=== PATIENT | male | born 1945 | race Caucasian/White ===

== ENCOUNTER 2017-10-03 20:32 | Inpatient (IN) | payer OTHER ==
[~2017-10-03] VITALS: Ht 182.9 cm; Wt 84.1 kg
[2017-10-03 20:46] LABS: BASOPHIL (%) 0.7 % (0-1); BASOPHIL COUNT 0.1 K/uL (0-0.1); EOSINOPHIL (%) 1.5 % (0-5); EOSINOPHIL COUNT 0.2 K/uL (0-0.3); HEMATOCRIT 50.7 % (38.0-50.0); HEMOGLOBIN 17.2 G/DL (12.5-16.6); IMMATURE GRANULOCYTE (%) 0.4 % (0.0-0.7); LYMPHOCYTE (%) 21.3 % (15-42); LYMPHOCYTE COUNT 2.3 K/uL (1.0-2.8); MCH 30.6 PG (29.0-34.0); MCHC 33.9 G/DL (30.0-36.0); MCV 90.2 FL (86-99); MONOCYTE (%) 7.1 % (3-12); MONOCYTE COUNT 0.8 K/uL (0-0.8); NEUTROPHIL COUNT 7.4 K/uL (1.8-6.4); PLATELET COUNT 357 K/uL (156-360); RBC DIS.WIDTH-CV 12.9 % (11.8-14.6); RBC DIS.WIDTH-SD 42.5 % (39-53); RED BLOOD COUNT 5.62 M/uL (4.00-5.50); WHITE BLOOD COUNT 10.8 K/uL (4.1-10.2)
[2017-10-03 20:57] LABS: PTT 29.9 SEC (25-37)
[2017-10-03 21:07] LABS: TROP-I INTERPRETATION POSITIVE
[2017-10-03 21:11] LABS: TROPONIN-I 0.64 ng/mL (0.0-0.30)
[2017-10-03 21:21] LABS: CHLORIDE 99 mEq/L (99-109); POTASSIUM 4.1 mEq/L (3.7-5.4); SODIUM 139 mEq/L (136-147)
[2017-10-03 21:22] LABS: MAGNESIUM 2.7 mg/dL (1.3-2.7)
[2017-10-03 21:23] LABS: GLUCOSE 127 mg/dL (70-99)
[2017-10-03 21:27] LABS: CREATININE 1.1 mg/dL (0.6-1.3); GFR ESTIMATE (CALCULATED) > 59 mL/min/ (58.99-99999); UREA NITROGEN (BUN) 16 mg/dL (9-23)
[2017-10-03] MEDS ORDERED: BENADRYL ALLERG25 MG PO (21:28)
[2017-10-03] MEDS ORDERED: EYE SUPPLEMENT PO (21:29)
[2017-10-04] VITALS (8 sets, daily range): BP systolic 138–158; BP diastolic 75–95
[2017-10-04 00:48] LABS: TROP-I INTERPRETATION POSITIVE
[2017-10-04 00:51] LABS: TROPONIN-I 2.29 ng/mL (0.0-0.30)
[2017-10-04] MEDS ORDERED: OMEGA-31000 M1 PO (02:03)
[2017-10-04 08:01] LABS: HEMATOCRIT 43.3 % (38.0-50.0); MCH 29.4 PG (29.0-34.0); MCHC 32.3 G/DL (30.0-36.0); PLATELET COUNT 318 K/uL (156-360); RBC DIS.WIDTH-SD 43.4 % (39-53); RED BLOOD COUNT 4.76 M/uL (4.00-5.50); WHITE BLOOD COUNT 11.5 K/uL (4.1-10.2)
[2017-10-04 08:14] LABS: CHLORIDE 101 MEQ/L (99-109); CREATININE 0.8 MG/DL (0.6-1.3); GFR ESTIMATE (CALCULATED) > 59 mL/min/ (58.99-99999); GLUCOSE 123 mg/dL (70-99); POTASSIUM 4.5 MEQ/L (3.7-5.4); SODIUM 136 MEQ/L (136-147); UREA NITROGEN (BUN) 13 mg/dL (9-23)
[2017-10-04 08:20] LABS: TROP-I INTERPRETATION POSITIVE; TROPONIN-I 7.49 ng/mL (0.0-0.30)
[2017-10-05 00:24] VITALS: BP 111/57
[2017-10-05 04:45] VITALS: BP 108/66
[2017-10-05 05:07] LABS: HEMATOCRIT 39.4 % (38.0-50.0); HEMOGLOBIN 12.7 G/DL (12.5-16.6); MCH 29.5 PG (29.0-34.0); MCHC 32.2 G/DL (30.0-36.0); MCV 91.4 FL (86-99); PLATELET COUNT 286 K/uL (156-360); RBC DIS.WIDTH-CV 13.2 % (11.8-14.6); RBC DIS.WIDTH-SD 44.8 % (39-53); RED BLOOD COUNT 4.31 M/uL (4.00-5.50); WHITE BLOOD COUNT 10.2 K/uL (4.1-10.2)
[2017-10-05 05:47] LABS: CHLORIDE 103 MEQ/L (99-109); CREATININE 0.8 MG/DL (0.6-1.3); GFR ESTIMATE (CALCULATED) > 59 mL/min/ (58.99-99999); GLUCOSE 113 mg/dL (70-99); POTASSIUM 4.4 MEQ/L (3.7-5.4); SODIUM 134 MEQ/L (136-147); UREA NITROGEN (BUN) 14 mg/dL (9-23)
[2017-10-05 07:04] VITALS: BP 103/59
[2017-10-05] MEDS ORDERED: ASPIRIN81 M2 PO (10:55)
[2017-10-05] MEDS ORDERED: ATORVASTATIN CA80 MG PO (10:55)
[2017-10-05] MEDS ORDERED: LISINOPRIL10 MG PO (10:55)
[2017-10-05] MEDS ORDERED: LOPRESSOR25 MG PO (10:55)
[2017-10-05] MEDS ORDERED: CLOPIDOGREL75 MG PO (10:55)
[2017-10-05 11:18] VITALS: BP 97/54
[2017-10-05] MEDS ORDERED: CRESTOR40 MG PO (11:56)
== END 2017-10-05 13:00 | disposition home or self-care (01) | DRG 247 ==
LOC: EME 20:32 → 4EAST 10-04 00:06 → EDOF 10-04 00:06 → 4WEST 10-04 00:06 → ENRESERV 10-04 00:12 → 4WEST 10-04 01:57 → ENRESERV 10-04 15:08 → 4EAST 10-04 16:57
PROVIDERS: Emergency Medicine; Hospitalist; Internal Medicine
PROC: 4A023N7 Measurement of Cardiac Sampling and Pressure, Left Heart, Percutaneous Approach (ICD-10-PCS; principal; 2017-10-04)
PROC: B2111ZZ Fluoroscopy of Multiple Coronary Arteries using Low Osmolar Contrast (ICD-10-PCS; principal; 2017-10-04)
PROC: B2151ZZ Fluoroscopy of Left Heart using Low Osmolar Contrast (ICD-10-PCS; principal; 2017-10-04)
PROC: 027034Z Dilation of Coronary Artery, One Artery with Drug-eluting Intraluminal Device, Percutaneous Approach (ICD-10-PCS; principal; 2017-10-04)
PROC: 4A033BC Measurement of Arterial Pressure, Coronary, Percutaneous Approach (ICD-10-PCS; principal; 2017-10-04)
DX: I21.4 Non-ST elevation (NSTEMI) myocardial infarction (principal); I16.1 Hypertensive emergency; I25.10 Atherosclerotic heart disease of native coronary artery without angina pectoris; I10 Essential (primary) hypertension; I45.10 Unspecified right bundle-branch block; E78.5 Hyperlipidemia, unspecified; M54.2 Cervicalgia
CPT/HCPCS: 71045; 71275; 80048; 83735; 84484; 85025; 85027; 85347; 85610; 85730; 86850; 86900; 86901; 87641; 93005; 99281; 99285; C1725; C1769; C1874; C1887; J0153; J1644; J2250; J3010; J7030